=== PATIENT | female | born 1995 ===

== ENCOUNTER 2018-06-03 00:08 | Emergency (ER) | payer MEDICAID ==
[2018-06-03 00:16] VITALS: RESP 16; O2SAT 100
--- NOTE | 2018-06-03 00:43 | C.PDOC ---
History Of Present Illness 22 year old female brought to the ED by mother for an evaluation of decreased appetite, nausea, and vomiting for one week. Unable to obtain complete history because of patient's autistic condition. Time Seen by Provider: 06/03/18 00:41 Chief Complaint (Nursing): GI Problem History Per: Family (Mother ) History/Exam Limitations: no limitations Onset/Duration Of Symptoms: Days (one week) Current Symptoms Are (Timing): Still Present Context: Other Severity: Mild Pain Scale Rating Of: 2 Location Of Pain/Discomfort: Diffuse Radiation Of Pain To:: None Associated Symptoms: Nausea, Vomiting, Loss Of Appetite Exacerbating Factors: Food Alleviating Factors: None Last Bowel Movement: Yesterday Recent travel outside of the [place]: No Additional History Per: Family Past Medical History Reviewed: Historical Data, Nursing Documentation, Vital Signs Vital Signs: Last Vital Signs Temp 99 F 06/03/18 01:00 Pulse 105 H 06/03/18 00:14 Resp 16 06/03/18 00:14 BP 99/69 L 06/03/18 00:14 Pulse Ox 100 06/03/18 02:43 - Medical History Other PMH: Autism Surgical History: No Surg Hx Family History: States: No Known Family Hx - Social History Hx Alcohol Use: No Hx Substance Use: No Review Of Systems Constitutional: Positive for: Fever, Other (Decreased appetite, ROS limited to patient's autistic condition) Gastrointestinal: Positive for: Nausea, Vomiting Physical Exam - Physical Exam Appears: Non-toxic, No Acute Distress Skin: Warm, Dry Head: Normacephalic Eye(s): bilateral: Normal Inspection Oral Mucosa: Dry Neck: Trachea Midline, Supple Chest: Symmetrical Cardiovascular: Rhythm Regular Respiratory: No Rales, No Rhonchi, No Wheezing Gastrointestinal/Abdominal: Soft, No Tenderness, No Distention, No Guarding Back: Normal Inspection Extremity: Normal ROM Extremity: Bilateral: Normal Color And Temperature Neurological/Psych: Other (alert, awake ) Gait: Unable To Assess ED Course And Treatment - Laboratory Results Result Diagrams: 06/03/18 01:21 06/03/18 01:21 O2 Sat by Pulse Oximetry: 100 (RA) Pulse Ox Interpretation: Normal Progress Note: Patient administered Zofran 4mg IVP and IV Fluids. Disposition Counseled Patient/Family Regarding: Studies Performed, Diagnosis, Need For Followup, Rx Given - Disposition Referrals: Eduin Givens [Medical Doctor] - Disposition: HOME/ ROUTINE Disposition Time: 00:43 Condition: FAIR Additional Instructions: Please return if symptoms recur Prescriptions: Ondansetron ODT [Zofran ODT] 1 odt PO BID PRN #10 odt PRN Reason: Nausea/Vomiting Instructions: Nausea and Vomiting, Adult (DC) Forms: [facility] (Gabonese) - Clinical Impression Clinical Impression: Nausea & vomiting - Scribe Statement The provider has reviewed the documentation as recorded by the Scribjaskaran Morocho All medical record entries made by the Elizabethibjaskaran were at my direction and personally dictated by me. I have reviewed the chart and agree that the record accurately reflects my personal performance of the history, physical exam, medical decision making, and the department course for this patient. I have also personally directed, reviewed, and agree with the discharge instructions and disposition.
[2018-06-03] MEDS ORDERED: Sodium Chloride 0.9% 1,000 ML IV ONE ×2 (00:58→02:17)
[2018-06-03] MEDS ORDERED: Sodium Chloride 0.9% 1,000 ML ONE (01:17)
[2018-06-03 01:28] LABS: BASO % 0.4 % (0.0-2.0); EOS # 0.1 K/uL (0.0-0.7); EOS % 1.6 % (0.0-4.0); HEMOGLOBIN 15.3 g/dL (11.0-16.0); LYMPH # 1.8 K/uL (1.0-4.3); MEAN CORPUSCULAR HGB CONC 34.6 g/dL (33.0-37.0); MEAN PLATELET VOLUME 10.9 fL (7.2-11.7); MONO # 0.8 K/uL (0.0-0.8); MONO % 12.4 % (0.0-10.0); NEUT % 58.6 % (50.0-75.0); NRBC % 0.1 % (0.0-2.0); RBC 5.47 Mil/uL (3.80-5.20); RED CELL DISTRIBUTION WIDTH 15.7 % (11.5-14.5); WHITE BLOOD COUNT 6.8 K/uL (4.8-10.8)
[2018-06-03 02:10] LABS: ALB/GLOB RATIO 1.6 (1.0-2.1); ALBUMIN 4.8 g/dL (3.5-5.0); ALT/SGPT 48 U/L (9-52); AST/SGOT 30 U/L (14-36); BLOOD UREA NITROGEN 4 mg/dL (7-17); CALCIUM 9.5 mg/dl (8.6-10.4); GFR AFRICAN-AMERICAN > 60; GFR NON-AFRICAN AMERICAN > 60; LIPASE 105 U/L (23-300)
[2018-06-03 03:27] VITALS: BP 100/60; PULSE 72; TEMP 98.5
== END 2018-06-03 03:22 | disposition home or self-care (01) ==
LOC: C.ER 00:08
DX: R11.2 Nausea with vomiting, unspecified (principal)
CPT/HCPCS: 80053; 83690; 85025; 96361; 96374; 99285; J2405; J7030

== ENCOUNTER 2018-06-04 13:05 | Inpatient (IN) | payer MEDICAID ==
[2018-06-04] MEDS ORDERED: Sodium Chloride 0.9% 1,000 ML IV ONE (13:44)
[2018-06-04 14:21] LABS: BASO % 0.2 % (0.0-2.0); EOS # 0.1 K/uL (0.0-0.7); EOS % 0.9 % (0.0-4.0); HEMOGLOBIN 16.1 g/dL (11.0-16.0); LYMPH # 1.3 K/uL (1.0-4.3); LYMPH % 12.2 % (20.0-40.0); MEAN CELL VOLUME 81.4 fL (81.0-99.0); MEAN CORPUSCULAR HEMOGLOBIN 27.9 pg (27.0-31.0); MEAN CORPUSCULAR HGB CONC 34.2 g/dL (33.0-37.0); MEAN PLATELET VOLUME 10.6 fL (7.2-11.7); MONO # 0.8 K/uL (0.0-0.8); MONO % 7.1 % (0.0-10.0); NEUT # 8.7 K/uL (1.8-7.0); NEUT % 79.6 % (50.0-75.0); RBC 5.79 Mil/uL (3.80-5.20); RED CELL DISTRIBUTION WIDTH 16.3 % (11.5-14.5)
[2018-06-04 14:34] LABS: SQUAMOUS EPITHIAL 7 /hpf (0-5); URINE BACTERIA RARE (<OCC); URINE BILIRUBIN NEGATIVE (NEGATIVE); URINE BLOOD NEGATIVE (NEGATIVE); URINE CLARITY Clear (Clear); URINE COLOR Amber (YELLOW); URINE GLUCOSE (UA) NORMAL (Normal); URINE LEUKOCYTE ESTERASE NEG Leu/uL (Negative); URINE PROTEIN 1+ mg/dL (NEGATIVE)
[2018-06-04 14:57] LABS: BLOOD UREA NITROGEN < 2 mg/dL (7-17); GFR AFRICAN-AMERICAN > 60; GFR NON-AFRICAN AMERICAN > 60
[2018-06-04 14:59] LABS: ALB/GLOB RATIO 1.5 (1.0-2.1); CALCIUM 9.5 mg/dl (8.6-10.4)
[2018-06-04 15:00] LABS: ALT/SGPT 43 U/L (9-52); AST/SGOT 29 U/L (14-36); LIPASE 123 U/L (23-300)
--- NOTE | 2018-06-04 15:03 | CT ---
Date of service: 06/04/2018 PROCEDURE: CT HEAD WITHOUT CONTRAST. HISTORY: seizure COMPARISON: None available. TECHNIQUE: Axial computed tomography images were obtained through the head/brain without intravenous contrast. Radiation dose: Total exam DLP = 868.37 mGy-cm. This CT exam was performed using one or more of the following dose reduction techniques: Automated exposure control, adjustment of the mA and/or kV according to patient size, and/or use of iterative reconstruction technique. FINDINGS: HEMORRHAGE: No intracranial hemorrhage. BRAIN: Normal alex-white matter differentiation and density are appreciated throughout the cerebrum and cerebellum with the brainstem appearing unremarkable as well. There is no mass effect. There is no suspicious extra-axial fluid collection and the midline brain anatomy appears diffusely unremarkable. VENTRICLES: Unremarkable. No hydrocephalus. CALVARIUM: No destructive bony lesion or displaced fracture identified including through the skullbase. PARANASAL SINUSES: Unremarkable as visualized. No significant inflammatory changes. MASTOID AIR CELLS: Unremarkable as visualized. No inflammatory changes. OTHER FINDINGS: None. IMPRESSION: Unremarkable noncontrast head CT.
[2018-06-04] MEDS ORDERED: Iohexol 240 (50 ml) PO ONE (15:09)
--- NOTE | 2018-06-04 15:19 | C.PDOC ---
History Of Present Illness 22 y/o female with history of Autism brought to ED by mother for evaluation of abdominal pain with loss of appetite for the past 2 weeks and new onset seizure today. Mother states today she found patient in bed with incontinence of urine and stool this morning. Mother reports patient was seen at ED 2 days ago for abdominal discomfort, nausea and vomiting,treated with Saline for dehydration and discharged on Zofran. Patient is non verbal, HPI limited and obtained by mother. Time Seen by Provider: 06/04/18 13:30 Chief Complaint (Nursing): Seizure History Per: Family History/Exam Limitations: clinical condition Recent Seizure Activity Began: Days Ago: Number Of Seizures: Multiple Past Medical History Reviewed: Historical Data, Nursing Documentation, Vital Signs Vital Signs: Last Vital Signs Temp 98.5 F 06/04/18 21:01 Pulse 83 06/04/18 22:00 Resp 20 06/04/18 21:01 BP 93/56 L 06/04/18 21:01 Pulse Ox 100 06/04/18 21:01 - Medical History PMH: Seizures Surgical History: No Surg Hx Family History: States: No Known Family Hx - Social History Hx Alcohol Use: No Hx Substance Use: No Review Of Systems Review Of Systems: ROS cannot be obtained secondary to pt's inabilty to answer questions. (patient is non verbal) Physical Exam - Physical Exam Appears: Non-toxic Skin: Warm, Dry, No Rash Head: Atraumatic, Normacephalic Eye(s): bilateral: Normal Inspection Oral Mucosa: Moist Neck: Supple Cardiovascular: Rhythm Regular Respiratory: Normal Breath Sounds, No Rales, No Rhonchi, No Wheezing Gastrointestinal/Abdominal: Bowel Sounds, Soft, No Tenderness, No Guarding, No Rebound Extremity: Normal ROM, Capillary Refill (<2 seconds) Neurological/Psych: Oriented x3, Other (Patient is non verbal) ED Course And Treatment - Laboratory Results Result Diagrams: 06/04/18 14:15 06/04/18 14:15 Lab Interpretation: Abnormal (WBC 11.o, Hgb 16, Hct 47, BUN <2, Cr 0.5, HCO3 14 , Lactate 3.2) O2 Sat by Pulse Oximetry: 100 (RA) Pulse Ox Interpretation: Normal - CT Scan/US CT Head Other Rad Studies (CT/US): Read By Radiologist, Radiology Report Reviewed CT/US Interpretation: Accession No. : [id number]. Patient Name / ID : SHA PENNY / [id number]. Exam Date : 06/04/2018 14:58:54 ( Approved ). Study Comment : Sex / Age : F / 22Y. Creator : Tiffani Lynch. Dictator : Kalia Collier MD. Vegetable Farm Manager : Chief Environmental Commitment Officer : Kalia Collier MD. Approver2 : Report Date : 06/04/2018 14:59:50. My Comment : . Date of service: 06/04/2018. PROCEDURE: CT HEAD WITHOUT CONTRAST. HISTORY: seizure. COMPARISON: None available. TECHNIQUE: Axial computed tomography images were obtained through the head/brain without intravenous contrast. Radiation dose: Total exam DLP = 868.37 mGy-cm. This CT exam was performed using one or more of the following dose reduction techniques: Automated exposure control, adjustment of the mA and/or kV according to patient size, and/ or use of iterative reconstruction technique. FINDINGS: HEMORRHAGE: No intracranial hemorrhage. BRAIN: Normal alex-white matter differentiation and density are appreciated throughout the cerebrum and cerebellum with the brainstem appearing unremarkable as well. There is no mass effect. There is no suspicious extra-axial fluid collection and the midline brain anatomy appears diffusely unremarkable. VENTRICLES: Unremarkable. No hydrocephalus. CALVARIUM: No destructive bony lesion or displaced fracture identified including through the skullbase. PARANASAL SINUSES: Unremarkable as visualized. No significant inflammatory changes. MASTOID AIR CELLS: Unremarkable as visualized. No inflammatory changes. OTHER FINDINGS: None. IMPRESSION: Unremarkable noncontrast head CT. Reevaluation Time: 15:15 - Physician Consult Information Time Consulting Physician Contacted: 15:15 Physician Contacted: Rufina Lerma Outcome Of Conversation: Patient to be admitted for High anion gap acidosis. Abdominal pain with nausea and vomiting Disposition - Disposition Disposition: HOSPITALIZED Disposition Time: 15:20 Condition: FAIR - POA Present On Arrival: None - Clinical Impression Clinical Impression: Seizure, Nausea & vomiting, Abdominal pain, High anion gap metabolic acidosis - Scribe Statement The provider has reviewed the documentation as recorded by the Elizabethibjaskaran Etienne All medical record entries made by the Elizabethibjaskaran were at my direction and personally dictated by me. I have reviewed the chart and agree that the record accurately reflects my personal performance of the history, physical exam, medical decision making, and the department course for this patient. I have also personally directed, reviewed, and agree with the discharge instructions and disposition.
[2018-06-04] MEDS ORDERED: Dextrose 5%/0.9% NS 1,000 ML IV ONE ×2 (15:21→15:38)
[2018-06-04] MEDS ORDERED: Iohexol 240 (50 ml) ONE (15:38)
[2018-06-04 16:24] LABS: BARBITURATES, UR NEGATIVE (NEGATIVE); BENZODIAZEPINES, UR NEGATIVE (NEGATIVE); OPIATES, UR NEGATIVE (NEGATIVE); PHENCYCLIDINE, UR NEGATIVE (NEGATIVE)
--- NOTE | 2018-06-04 16:48 | CP.PCM.PN ---
Subjective - Date & Time of Evaluation Date of Evaluation: 06/04/18 Time of Evaluation: 16:10 - Subjective Subjective: Progress Note for Dr. Lerma's service Patient seen and examined at approximately 16:10 PM in ED Bed 12. Patient is a full code status at this time. Patient's emergency contact is her mother who provided the history due to patient being autistic. 22 year old female with past medical history significant for autism and eczema presents after new onset seizure per mother. Mother states that patient recently came to the ER one day prior after complaints of nausea and vomiting for over a week's duration. Mother states that for the past two week's patient has not been her norm. She has barely been eating or drinking. Mother states that patient seems withdrawn most of the time. Patient then apparently had two witnessed seizures within the past 24 hours. Patient's mother denies any new foods, recent travel, medications or recent exposure to animals or sick contacts. Patient admits to abdominal pain. Mother admits to subjective low grade fever. PMHx- as stated above PSHx- none Fam Hx- Sister with seizures, diagnosed 4 years ago; maternal great grandmother - ovarian cancer; grandmother with thyroid disease Social Hx- denies smoking, drug use or alcohol use Medications - denies Allergies-denies PMD- Dr. Mancini, Vaccination history up to date, last physical in November Objective - Vital Signs/Intake and Output Vital Signs (last 24 hours): Temp Pulse Resp BP Pulse Ox 98.2 F 80 20 104/64 100 06/04/18 13:49 06/04/18 16:18 06/04/18 16:18 06/04/18 16:18 06/04/18 16:18 - Medications Medications: Current Medications Acetaminophen (Tylenol 325mg Tab) 650 mg PO Q6 PRN PRN Reason: Pain, Mild (1-3) Dextrose/Sodium Chloride (Dextrose 5%/0.9% Ns 1000 Ml) 1,000 mls @ 500 mls/hr IV .Q2H ONE Stop: 06/04/18 17:20 Last Admin: 06/04/18 15:40 Dose: 500 mls/hr Potassium Chloride (Potassium Chloride 20 Meq/100 Ml) 20 meq in 100 mls @ 50 mls/hr IVPB ONCE ONE Stop: 06/04/18 18:28 Lorazepam (Ativan) 2 mg IVP Q4 PRN PRN Reason: Seizure activity Ondansetron HCl (Zofran Inj) 4 mg IVP Q6 PRN PRN Reason: Nausea/Vomiting - Labs Labs: 06/04/18 14:15 06/04/18 14:15 - Constitutional Appears: Non-toxic, No Acute Distress, Other - Head Exam Head Exam: ATRAUMATIC, NORMAL INSPECTION - Eye Exam Eye Exam: EOMI - ENT Exam Additional comments: Could not properly assess ears as patient was combative at the time. - Neck Exam Neck Exam: Full ROM - Respiratory Exam Respiratory Exam: NORMAL BREATHING PATTERN - Cardiovascular Exam Cardiovascular Exam: +S1, +S2 - GI/Abdominal Exam GI & Abdominal Exam: Guarding, Soft, Tenderness (RLQ), Normal Bowel Sounds. absent: Rigid - Exam Additional comments: suprapubic tenderness - Extremities Exam Extremities Exam: Full ROM - Back Exam Back Exam: Full ROM. absent: CVA tenderness (L), CVA tenderness (R) - Neurological Exam Neurological Exam: Awake Neuro motor strength exam: Left Upper Extremity: 5, Right Upper Extremity: 5, Left Lower Extremity: 5, Right Lower Extremity: 5 Additional comments: difficult to follow commands due to baseline presentation (autism) - Psychiatric Exam Psychiatric exam: Normal Affect, Normal Mood - Skin Skin Exam: Intact, Normal Color Additional comments: cool hands Assessment and Plan (1) Seizure Assessment & Plan: Head CT- negative for acute disease or bleed. F/U MRI and EEG Consult to Neuro (Dr. Muhammad)- F/U recommendations Lactic acid likely elevated due to seizure. (Slightly hemolysed as well) F/U Blood cultures and UA/UC to rule out infections F/U EKG to rule out cardiac etiology Ativan 2 mg IV PRN on board UDS negative F/U AM labs NPO Aspiration, fall risk and seizure precautions on board Status: Acute (2) Abdominal pain Assessment & Plan: F/U CT abdomen and pelvis F/U ID (Dr. Middleton) recommendations Lipase negative, bHcg negative Zofran PRN Tylenol PRN for pain Status: Acute (3) Hypokalemia Assessment & Plan: Repleted Continue to monitor Status: Acute (4) Prophylactic measure Assessment & Plan: Heparin SC Q 8H No GI prophylaxis indicated at this time Status: Acute - Assessment and Plan (Free Text) Assessment: Discussed with attending. All planning and management as per Dr. Lerma.
[2018-06-04] MEDS ORDERED: Potassium Chloride 20 mEq 100 ML ONE (17:10)
[2018-06-04] MEDS ORDERED: Iodixanol 320 MG/ML 100 ML BOTTLE IV ONE (18:02)
--- NOTE | 2018-06-04 18:39 | CT ---
Date of service: 06/04/2018 PROCEDURE: CT Abdomen and Pelvis with contrast HISTORY: abdominal pain COMPARISON: None. TECHNIQUE: CT scan of the abdomen and pelvis was performed after administration of intravenous contrast. Oral contrast was not administered. Coronal and sagittal reformatted images were obtained. Contrast dose: 100 mL Visipaque 320 Radiation dose: Total exam DLP = 288.42 mGy-cm. This CT exam was performed using one or more of the following dose reduction techniques: Automated exposure control, adjustment of the mA and/or kV according to patient size, and/or use of iterative reconstruction technique. FINDINGS: LOWER THORAX: The visualized lungs are clear. LIVER: Normal in size with homogeneous enhancement. No gross lesion or ductal dilatation. GALLBLADDER AND BILE DUCTS: No calcified gallstones. PANCREAS: Normal in size with homogeneous enhancement. No gross lesion or ductal dilatation. SPLEEN: Normal in size and appearance. ADRENALS: No discrete nodule. KIDNEYS AND URETERS: Normal in size with homogeneous enhancement. No hydronephrosis. No solid mass. VASCULATURE: No aortic aneurysm. BOWEL: There is fluid in the stomach. There are fluid-filled small bowel loops in the right abdomen. There is apparent circumferential mural thickening in the ascending, transverse and proximal descending colon. There is large amount of stool in the mid descending colon, sigmoid colon and rectum. APPENDIX: Normal appendix. PERITONEUM: No free fluid. No free air. LYMPH NODES: No enlarged lymph nodes. BLADDER: Well distended and normal in appearance. REPRODUCTIVE: The uterus is normal in size and deviated to the right. BONES: No acute fracture. Within normal limits for the patient's age. OTHER FINDINGS: None. IMPRESSION: Findings are most compatible with nonspecific acute infectious/inflammatory colitis involving the ascending, transverse and proximal descending colon. Large amount of stool in the distal descending colon, sigmoid colon and rectum.
[2018-06-04] MEDS: Dextrose 5%/0.45% NS 1,000 ML IV SCH (22:01)
[2018-06-05] MEDS: Dextrose 5%/0.45% NS 1,000 ML IV SCH ×2 (06:31→18:02)
[2018-06-05 08:39] LABS: BASO % 0.5 % (0.0-2.0); EOS # 0.4 K/uL (0.0-0.7); EOS % 5.8 % (0.0-4.0); HEMOGLOBIN 12.3 g/dL (11.0-16.0); LYMPH % 33.1 % (20.0-40.0); MEAN CORPUSCULAR HEMOGLOBIN 28.3 pg (27.0-31.0); MEAN CORPUSCULAR HGB CONC 35.9 g/dL (33.0-37.0); MEAN PLATELET VOLUME 10.6 fL (7.2-11.7); MONO # 0.9 K/uL (0.0-0.8); MONO % 14.2 % (0.0-10.0); NEUT # 2.8 K/uL (1.8-7.0); NEUT % 46.4 % (50.0-75.0); RBC 4.36 Mil/uL (3.80-5.20); RED CELL DISTRIBUTION WIDTH 15.8 % (11.5-14.5); WHITE BLOOD COUNT 6.1 K/uL (4.8-10.8)
[2018-06-05 08:42] LABS: MEAN CELL VOLUME 78.7 fL (81.0-99.0)
[2018-06-05 08:56] LABS: ALB/GLOB RATIO 1.5 (1.0-2.1); ALBUMIN 3.3 g/dL (3.5-5.0); ALT/SGPT 35 U/L (9-52); AST/SGOT 20 U/L (14-36); BLOOD UREA NITROGEN < 2 mg/dL (7-17); CALCIUM 7.7 mg/dl (8.6-10.4); GFR AFRICAN-AMERICAN > 60; GFR NON-AFRICAN AMERICAN > 60
--- NOTE | 2018-06-05 11:17 | CP.PCM.PN ---
Subjective - Date & Time of Evaluation Date of Evaluation: 06/05/18 Time of Evaluation: 11:17 - Subjective Subjective: PGY-[address] Lerma's Service Patient seen and examined at bedside. Per nursing, no acute events occurred overnight. Patient's mother reports one episode of non-billious, non-bloody emesis this morning. Remainder of ROS unobtainable due to patient's current clinical condition. Objective - Vital Signs/Intake and Output Vital Signs (last 24 hours): Temp Pulse Resp BP Pulse Ox 98.0 F 74 20 95/58 L 100 06/05/18 07:00 06/05/18 07:50 06/05/18 07:00 06/05/18 07:00 06/05/18 07:00 - Medications Medications: Current Medications Acetaminophen (Tylenol 325mg Tab) 650 mg PO Q6 PRN PRN Reason: Pain, Mild (1-3) Dextrose/Sodium Chloride (Dextrose 5%/0.45% Ns 1000 Ml) 1,000 mls @ 100 mls/hr IV .Q10H [place] Last Admin: 06/05/18 06:31 Dose: 100 mls/hr Lorazepam (Ativan) 2 mg IVP Q4 PRN PRN Reason: Seizure activity Ondansetron HCl (Zofran Inj) 4 mg IVP Q6 PRN PRN Reason: Nausea/Vomiting Last Admin: 06/04/18 17:24 Dose: 4 mg - Labs Labs: 06/05/18 08:28 06/05/18 08:28 - Head Exam Head Exam: NORMAL INSPECTION, NORMOCEPHALIC - Eye Exam Eye Exam: EOMI, Normal appearance, PERRL Pupil Exam: NORMAL ACCOMODATION - ENT Exam ENT Exam: Mucous Membranes Moist, Normal Oropharynx - Respiratory Exam Respiratory Exam: Clear to Ausculation Bilateral, NORMAL BREATHING PATTERN - Cardiovascular Exam Cardiovascular Exam: REGULAR RHYTHM, +S1, +S2 - GI/Abdominal Exam GI & Abdominal Exam: Soft, Normal Bowel Sounds - Extremities Exam Extremities Exam: Normal Inspection. absent: Joint Swelling, Pedal Edema - Neurological Exam Neurological Exam: Alert, Awake, CN II-XII Intact - Psychiatric Exam Psychiatric exam: Normal Affect, Normal Mood - Skin Skin Exam: Dry Assessment and Plan - Assessment and Plan (Free Text) Plan: Seizure Assessment & Plan: Head CT- negative for acute disease or bleed. MRI taken. Will f/u for read. EEG not taken yet. Will f/u with read. Consult to Neuro (Dr. Muhammad)- F/U recommendations Lactic acid likely elevated due to seizure. (Slightly hemolysed as well) F/U Blood cultures and UA contaminated. Will f/u with repeat. F/U EKG to rule out cardiac etiology Ativan 2 mg IV PRN on board UDS negative F/U AM labs NPO Aspiration, fall risk and seizure precautions on board Status: Acute Abdominal pain Assessment & Plan: CT abdomen and pelvis :nonspecific acute infectious/inflammatory colitis in ascedning, transverse and proximal colon :For complete read see EMR F/U ID (Dr. Middleton) recommendations GI Dr. Walker consulted. Help appreciated Lipase negative, bHcg negative Zofran PRN Tylenol PRN for pain Status: Acute Hypokalemia Assessment & Plan: Repleted Continue to monitor Status: Acute Hypomagnesmia -Repleted -Will continue to monitor with serial CMP'S (4) Prophylactic measure Assessment & Plan: Heparin SC Q 12H No GI prophylaxis indicated at this time Status: Acute - Assessment and Plan (Free Text) Assessment: Discussed with attending. All planning and management as per Dr. Lerma.
[2018-06-05] MEDS ORDERED: Magnesium Sulfate 1 gm in D5W 1 GM/100 ML BAG IVPB ONE ×2 (11:27→16:57)
--- NOTE | 2018-06-05 15:17 | MRI ---
Date of service: 06/05/2018 PROCEDURE: MRI BRAIN WITHOUT CONTRAST HISTORY: seizure- new onset COMPARISON: Noncontrast head CT from 06/04/2018. TECHNIQUE: Multiplanar, multisequence MR images of the brain were obtained without intravenous contrast enhancement. FINDINGS: HEMORRHAGE: None DWI: No evidence of an acute or early subacute infarction. BRAIN PARENCHYMA: Barnes-white matter differentiation is preserved. There is no mass, mass effect or abnormal extra-axial fluid collection. There is no territorial infarction. The midline sagittal structures are normal. The hippocampi by are symmetric and have normal signal intensity. No evidence for mesial temporal sclerosis VENTRICLES: The ventricles are normal in size, shape and configuration. CRANIUM: There is normal bone marrow signal pattern. ORBITS: Grossly unremarkable. PARANASAL SINUSES/MASTOIDS: Predominantly clear. VASCULAR SYSTEM: There are normal signal voids in the larger intracranial arteries. OTHER FINDINGS: None. IMPRESSION: No acute intracranial abnormality. No evidence for mesial temporal sclerosis.
--- NOTE | 2018-06-05 17:05 | CP.PCM.CON ---
History of Present Illness - History of Present Illness History of Present Illness: PGY-4 GI Fellow Initial Consult Note The following mostly obtained from chart review and mother due to patient unable to provide history due to autism. Pt is a 22 yo F with autism presenting initially for seizure eval. Mother reported patient was seen at ED recently for abdominal discomfort, nausea and vomiting,treated with IV Fluids and discharged on ondansetron. GI consulted for persistent symptoms. Mother states that patient has had intermittent N/V for almost the last few weeks. Emesis consists of PO intake, denying any bloody or bilious emesis. State patient had last BM yesterday AM and was formed brown though she thinks that patient may be going less than usual. She denied any sick contacts, recent travel, abx use or change in diet. Unable to obtain ROS due to clinical condition, pt not verbal MHx: Autism SurgHx: None Meds: reviewed in MAR FamHx:Denied GI problems SocHx: No EtOH, Ill, Tob All: NKDA Past Patient History - Past Medical History & Family History Past Medical History?: No - Past Social History Smoking Status: Never Smoked - NEUROLOGICAL Hx Seizures: Yes - MUSCULOSKELETAL/RHEUMATOLOGICAL Hx Falls: Yes - PSYCHIATRIC Hx Substance Use: No - SURGICAL HISTORY Hx Surgeries: No - ANESTHESIA Hx Anesthesia: No Meds Allergies/Adverse Reactions: Allergies Allergy/AdvReac Type Severity Reaction Status Date / Time No Known Allergies Allergy Verified 06/03/18 00:16 - Medications Medications: Current Medications Acetaminophen (Tylenol 325mg Tab) 650 mg PO Q6 PRN PRN Reason: Pain, Mild (1-3) Heparin Sodium (Porcine) (Heparin) 5,000 units SC Q12 [facility] Dextrose/Sodium Chloride (Dextrose 5%/0.45% Ns 1000 Ml) 1,000 mls @ 100 mls/hr IV .Q10H [facility] Last Admin: 06/05/18 06:31 Dose: 100 mls/hr Magnesium Sulfate/Dextrose (Magnesium Sulfate 1 Gm/100 Ml D5w) 1 gm in 100 mls @ 200 mls/hr IVPB ONCE ONE Stop: 06/05/18 17:26 Potassium Chloride (Potassium Chloride 20 Meq/100 Ml) 20 meq in 100 mls @ 50 mls/hr IVPB ONCE ONE Stop: 06/05/18 18:56 Potassium Chloride (Potassium Chloride 20 Meq/100 Ml) 20 meq in 100 mls @ 50 mls/hr IVPB ONCE ONE Stop: 06/05/18 20:59 Lorazepam (Ativan) 2 mg IVP Q4 PRN PRN Reason: Seizure activity Ondansetron HCl (Zofran Inj) 4 mg IVP Q6 PRN PRN Reason: Nausea/Vomiting Last Admin: 06/04/18 17:24 Dose: 4 mg Physical Exam - Constitutional Appears: No Acute Distress, Cachectic, Chronically Ill - Head Exam Head Exam: ATRAUMATIC, NORMAL INSPECTION - Eye Exam Eye Exam: EOMI. absent: Scleral icterus - ENT Exam ENT Exam: Mucous Membranes Dry - Respiratory Exam Respiratory Exam: Clear to Auscultation Bilateral, NORMAL BREATHING PATTERN - GI/Abdominal Exam GI & Abdominal Exam: Distended (mildly), Hypoactive Bowel Sounds, Soft. absent : Bruit, Firm, Guarding, Normal Bowel Sounds, Rigid, Tenderness - Rectal Exam Rectal Exam: Deferred - Extremities Exam Extremities exam: Positive for: normal inspection. Negative for: pedal edema - Neurological Exam Neurological exam: Alert Additional comments: non-verbal, intermittently tracks, mouth agape - Skin Skin Exam: Intact, Warm Results - Vital Signs Recent Vital Signs: Last Vital Signs Temp 98.1 F 06/05/18 15:30 Pulse 88 06/05/18 15:30 Resp 20 06/05/18 15:30 BP 112/75 06/05/18 15:30 Pulse Ox 99 06/05/18 15:30 - Labs Result Diagrams: 06/05/18 08:28 06/05/18 08:28 Labs: Laboratory Results - last 24 hr 06/05/18 06/05/18 06/05/18 08:28 08:28 12:53 WBC 6.1 RBC 4.36 Hgb 12.3 D Hct 34.3 MCV 78.7 L D MCH 28.3 MCHC 35.9 RDW 15.8 H Plt Count 176 MPV 10.6 Neut % (Auto) 46.4 L Lymph % (Auto) 33.1 [place] % (Auto) 14.2 H Eos % (Auto) 5.8 H Baso % (Auto) 0.5 Neut # (Auto) 2.8 Lymph # (Auto) 2.0 [place] # (Auto) 0.9 H Eos # (Auto) 0.4 Baso # (Auto) 0.0 Sodium 138 Potassium 2.6 L Chloride 103 Carbon Dioxide 23 Anion Gap 14 BUN < 2 L Creatinine 0.5 L Est GFR ( Amer) > 60 Est GFR (Non-Af Amer) > 60 Random Glucose 126 H Hemoglobin A1c 5.2 Calcium 7.7 L Phosphorus 1.6 L Magnesium 1.3 L Total Bilirubin 0.7 AST 20 ALT 35 Alkaline Phosphatase 38 D Total Protein 5.4 L Albumin 3.3 L D Globulin 2.1 L Albumin/Globulin Ratio 1.5 Assessment & Plan - Assessment and Plan (Free Text) Assessment: 22 yo F with autism presenting with N/V found to have colitis on CT. # N/V, Colitis: Likely related to viral illness. Pt will large stool burden on CT in addition to colitis. Perhaps symtoms related to constipation as well. Does not seem like C diff given reports formed stools recently and w/o sig risk factors. Plan: - Supportive care - Check stool culture, hold off C diff for now - Order dulcolax suppository - If persistent symptoms, may consider EGD Pt seen and examined with Dr. Walker
--- NOTE | 2018-06-05 19:41 | CP.PCM.CON ---
History of Present Illness - History of Present Illness History of Present Illness: 22 y/o female with history of Autism brought to ED by mother for evaluation of abdominal pain with loss of appetite for the past 2 weeks and new onset seizure today. Mother states today she found patient in bed with incontinence of urine and stool this morning. Mother reports patient was seen at ED 2 days ago for abdominal discomfort, nausea and vomiting,treated with Saline for dehydration and discharged on Zofran. Patient is non verbal, HPI limited and obtained by mother. Review of Systems - Review of Systems Systems not reviewed;Unavailable: Altered Mental Status All systems: reviewed and no additional remarkable complaints except Past Patient History - Past Medical History & Family History Past Medical History?: No - Past Social History Smoking Status: Never Smoked - NEUROLOGICAL Hx Seizures: Yes - MUSCULOSKELETAL/RHEUMATOLOGICAL Hx Falls: Yes - PSYCHIATRIC Hx Substance Use: No - SURGICAL HISTORY Hx Surgeries: No - ANESTHESIA Hx Anesthesia: No Meds Allergies/Adverse Reactions: Allergies Allergy/AdvReac Type Severity Reaction Status Date / Time No Known Allergies Allergy Verified 06/03/18 00:16 - Medications Medications: Current Medications Acetaminophen (Tylenol 325mg Tab) 650 mg PO Q6 PRN PRN Reason: Pain, Mild (1-3) Heparin Sodium (Porcine) (Heparin) 5,000 units SC Q12 [facility] Dextrose/Sodium Chloride (Dextrose 5%/0.45% Ns 1000 Ml) 1,000 mls @ 100 mls/hr IV .Q10H [facility] Last Admin: 06/05/18 18:02 Dose: Not Given Potassium Chloride (Potassium Chloride 20 Meq/100 Ml) 20 meq in 100 mls @ 50 mls/hr IVPB ONCE ONE Stop: 06/05/18 20:59 Last Admin: 06/05/18 19:06 Dose: 50 mls/hr Levetiracetam (Keppra) 250 mg PO BID [facility] Last Admin: 06/05/18 18:58 Dose: 250 mg Lorazepam (Ativan) 2 mg IVP Q4 PRN PRN Reason: Seizure activity Ondansetron HCl (Zofran Inj) 4 mg IVP Q6 PRN PRN Reason: Nausea/Vomiting Last Admin: 06/04/18 17:24 Dose: 4 mg Physical Exam - Constitutional Appears: No Acute Distress, Chronically Ill - Head Exam Head Exam: ATRAUMATIC, NORMOCEPHALIC - Eye Exam Eye Exam: PERRL - ENT Exam ENT Exam: Mucous Membranes Dry - Neck Exam Neck exam: Negative for: Lymphadenopathy - Respiratory Exam Respiratory Exam: Decreased Breath Sounds, Clear to Auscultation Bilateral - Cardiovascular Exam Cardiovascular Exam: REGULAR RHYTHM, +S1, +S2 - GI/Abdominal Exam GI & Abdominal Exam: Diminished Bowel Sounds, Soft. absent: Tenderness - Rectal Exam Rectal Exam: Deferred - Exam Exam: NORMAL INSPECTION - Extremities Exam Extremities exam: Positive for: pedal pulses present. Negative for: calf tenderness, pedal edema, tenderness - Back Exam Back exam: absent: CVA tenderness (L), CVA tenderness (R) - Neurological Exam Neurological exam: Alert, CN II-XII Intact, Oriented x3, Reflexes Normal - Psychiatric Exam Psychiatric exam: Normal Mood - Skin Skin Exam: Dry Results - Vital Signs Recent Vital Signs: Last Vital Signs Temp 98.1 F 06/05/18 15:30 Pulse 88 06/05/18 15:30 Resp 20 06/05/18 15:30 BP 112/75 06/05/18 15:30 Pulse Ox 99 06/05/18 15:30 - Labs Result Diagrams: 06/05/18 08:28 06/05/18 08:28 Labs: Laboratory Results - last 24 hr 06/05/18 06/05/18 06/05/18 08:28 08:28 12:53 WBC 6.1 RBC 4.36 Hgb 12.3 D Hct 34.3 MCV 78.7 L D MCH 28.3 MCHC 35.9 RDW 15.8 H Plt Count 176 MPV 10.6 Neut % (Auto) 46.4 L Lymph % (Auto) 33.1 [place] % (Auto) 14.2 H Eos % (Auto) 5.8 H Baso % (Auto) 0.5 Neut # (Auto) 2.8 Lymph # (Auto) 2.0 [place] # (Auto) 0.9 H Eos # (Auto) 0.4 Baso # (Auto) 0.0 Sodium 138 Potassium 2.6 L Chloride 103 Carbon Dioxide 23 Anion Gap 14 BUN < 2 L Creatinine 0.5 L Est GFR ( Amer) > 60 Est GFR (Non-Af Amer) > 60 Random Glucose 126 H Hemoglobin A1c 5.2 Calcium 7.7 L Phosphorus 1.6 L Magnesium 1.3 L Total Bilirubin 0.7 AST 20 ALT 35 Alkaline Phosphatase 38 D Total Protein 5.4 L Albumin 3.3 L D Globulin 2.1 L Albumin/Globulin Ratio 1.5 Assessment & Plan (1) Seizure Status: Acute - Assessment and Plan (Free Text) Assessment: seizures etiology unclear recc neuro eval consider LP await cultures Plan: 22 yo F with autism presenting with N/V found to have colitis on CT. r/o viral etiology Has no diarrhea at present recc : GI eval , stool enterovirus, OB, C/S
--- NOTE | 2018-06-06 03:24 | CON ---
Copied To: Martin Muhammad MD Attending MD: Martin Muhammad MD DATE: 06/05/2018 NEUROLOGY CONSULTATION REASON FOR CONSULTATION: Seizure. HISTORY OF PRESENTING ILLNESS: The patient is a 22-year-old female who was brought to the hospital by mother with abdominal pain and seizure. Apparently, the patient had a seizure yesterday. Her mother found her in stool and urine in the bed. had an episode during which she started shaking and then she passed out. The patient because of her history of autism and special needs. REVIEW OF SYSTEMS: There is no chest pain. No shortness of breath. Positive for abdominal pain. PAST MEDICAL HISTORY: Includes autism. MEDICATIONS AT HOME: None. ALLERGIES: NO KNOWN DRUG ALLERGIES. SOCIAL HISTORY: The patient is a nonsmoker and nonalcoholic. Does not use any illicit drugs. FAMILY HISTORY: The patient's sister has seizures. PHYSICAL EXAMINATION: GENERAL: The patient is a young female, lying in the bed, in no acute distress. VITAL SIGNS: Her blood pressure is 112/75, heart rate is 88 per minute, breathing at a rate of 16 per minute, temperature 98.1 degrees Fahrenheit. HEENT EXAM: Head is normocephalic and atraumatic. NECK: Supple. There are no carotid bruits. No JVD. LUNGS: Clear. HEART: S1 and S2 are audible. No murmurs. ABDOMEN: Soft and nontender. Bowel sounds are present. NEUROLOGIC EXAMINATION: Mental Status: The patient is awake and alert. She follows some simple commands. She is not verbalizing. Cranial nerve Examination: Pupils are 3 mm bilaterally reactive to light. Visual nunez are full. Extraocular movements are intact. There is no facial asymmetry. Palate is upgoing bilaterally. Tongue is midline. Motor Examination: Tone is normal. She is moving all four extremities symmetrically. Power appears to be 4 to 5/5. Plantars are downgoing bilaterally. Cerebellar Examination: [id number] shows no dysmetria. Gait is deferred at the moment. LABORATORY DATA: Labs reviewed, shows a WBC of 6.1, hemoglobin 12.3, hematocrit 34.3, and platelets of 176. Sodium 138, potassium 2.6, chloride 103, carbon dioxide 23, BUN of less than 2, creatinine 0.5, and glucose of 78. The patient's urine toxicology screen is negative. The patient had an MRI of the brain done, which shows no acute intracranial abnormality. No evidence of mesial temporal sclerosis. IMPRESSION: 1. New-onset seizure. 2. History of autism. RECOMMENDATIONS: 1. The patient to be started on Keppra 250 mg twice a day. 2. The patient to have seizure precautions. 3. The patient to have an electroencephalogram. 4. Please continue supportive care and other treatment. Thank you for the opportunity to participate in the care of this patient. Martin Muhammad MD
[2018-06-06] MEDS: Dextrose 5%/0.45% NS 1,000 ML IV SCH ×3 (04:25→14:20)
--- NOTE | 2018-06-06 07:05 | CP.PCM.PN ---
Subjective - Date & Time of Evaluation Date of Evaluation: 06/06/18 Time of Evaluation: 07:05 - Subjective Subjective: PGY-[address] Lerma's Service Patient seen and examined at bedside. Per nursing, no acute events occurred overnight. Patient's mother reports one episode of non-billious, non-bloody emesis this morning. Remainder of ROS unobtainable due to patient's current clinical condition. Objective - Vital Signs/Intake and Output Vital Signs (last 24 hours): Temp Pulse Resp BP Pulse Ox 98 F 98 H 20 100/65 99 06/05/18 23:42 06/05/18 23:42 06/05/18 23:42 06/05/18 23:42 06/05/18 23:42 Intake and Output: 06/06/18 06/06/18 06:59 18:59 Intake Total 500 Balance 500 - Medications Medications: Current Medications Acetaminophen (Tylenol 325mg Tab) 650 mg PO Q6 PRN PRN Reason: Pain, Mild (1-3) Heparin Sodium (Porcine) (Heparin) 5,000 units SC Q12 [facility] Last Admin: 06/05/18 22:25 Dose: 5,000 units Dextrose/Sodium Chloride (Dextrose 5%/0.45% Ns 1000 Ml) 1,000 mls @ 100 mls/hr IV .Q10H [facility] Last Admin: 06/06/18 04:25 Dose: Not Given Levetiracetam (Keppra) 250 mg PO BID [facility] Last Admin: 06/05/18 18:58 Dose: 250 mg Lorazepam (Ativan) 2 mg IVP Q4 PRN PRN Reason: Seizure activity Ondansetron HCl (Zofran Inj) 4 mg IVP Q6 PRN PRN Reason: Nausea/Vomiting Last Admin: 06/06/18 06:37 Dose: 4 mg - Labs Labs: 06/05/18 08:28 06/05/18 08:28 - Head Exam Head Exam: ATRAUMATIC, NORMAL INSPECTION, NORMOCEPHALIC - Eye Exam Eye Exam: EOMI, Normal appearance, PERRL Pupil Exam: NORMAL ACCOMODATION - ENT Exam ENT Exam: Mucous Membranes Moist, Normal Oropharynx - Respiratory Exam Respiratory Exam: Clear to Ausculation Bilateral, NORMAL BREATHING PATTERN. absent: Prolonged Expiratory Phase, Respiratory Distress - Cardiovascular Exam Cardiovascular Exam: REGULAR RHYTHM, +S1, +S2 - GI/Abdominal Exam GI & Abdominal Exam: Soft, Normal Bowel Sounds. absent: Hyperactive Bowel Sounds - Extremities Exam Extremities Exam: Normal Inspection - Back Exam Back Exam: NORMAL INSPECTION. absent: CVA tenderness (R), paraspinal tenderness - Neurological Exam Neurological Exam: Alert, Awake, CN II-XII Intact - Psychiatric Exam Psychiatric exam: Normal Affect, Normal Mood - Skin Skin Exam: Dry, Intact Assessment and Plan - Assessment and Plan (Free Text) Plan: Plan: Seizure Assessment & Plan: Head CT- negative for acute disease or bleed. MRI taken- negative EEG not taken yet. Will f/u with read. Consult to Neuro (Dr. Muhammad) : Patient started on Keppra 250mg BID : Patient to have seizure precautions : EEG : Continue supportive care and other treatment. Lactic acid likely elevated due to seizure. (Slightly hemolysed as well) Blood cultures: negative x24 hours Urine culture: negative UA contaminated. Will f/u with repeat. Ativan 2 mg IV PRN on board UDS negative Liquid diet Aspiration, fall risk and seizure precautions on board Status: Acute Abdominal pain Assessment & Plan: CT abdomen and pelvis :nonspecific acute infectious/inflammatory colitis in ascedning, transverse and proximal colon :For complete read see EMR ID (Dr. Middleton) recommendations :recc : GI eval , stool enterovirus, OB, C/S GI Dr. Walker consulted. Help appreciated : Supportive care : Check stool culture, hold off C diff for now : Order dulcolax suppository : If persistent symptoms, may consider EGD Lipase negative, bHcg negative Zofran PRN Tylenol PRN for pain Status: Acute Hypokalemia Assessment & Plan: Repleted Continue to monitor with serial CMP's Status: Acute Hypomagnesmia -Repleted -Will continue to monitor with serial CMP'S (4) Prophylactic measure Assessment & Plan: Heparin SC Q 12H No GI prophylaxis indicated at this time Status: Acute - Assessment and Plan (Free Text) Assessment: Discussed with attending. All planning and management as per Dr. Lerma.
[2018-06-06 12:10] LABS: BASO % 0.3 % (0.0-2.0); EOS # 0.3 K/uL (0.0-0.7); EOS % 3.7 % (0.0-4.0); HEMOGLOBIN 12.7 g/dL (11.0-16.0); LYMPH # 1.7 K/uL (1.0-4.3); LYMPH % 18.5 % (20.0-40.0); MEAN CELL VOLUME 78.7 fL (81.0-99.0); MEAN CORPUSCULAR HEMOGLOBIN 28.3 pg (27.0-31.0); MEAN PLATELET VOLUME 10.2 fL (7.2-11.7); MONO # 0.9 K/uL (0.0-0.8); MONO % 10.3 % (0.0-10.0); NEUT # 6.2 K/uL (1.8-7.0); NEUT % 67.2 % (50.0-75.0); RBC 4.49 Mil/uL (3.80-5.20); RED CELL DISTRIBUTION WIDTH 16.1 % (11.5-14.5); WHITE BLOOD COUNT 9.2 K/uL (4.8-10.8)
[2018-06-06] MEDS: POLYETHYLENE GLYCOL 3350 17 GM/Dose PACKET PO SCH (12:20)
[2018-06-06 12:22] LABS: ALB/GLOB RATIO 1.4 (1.0-2.1); ALBUMIN 3.2 g/dL (3.5-5.0); ALT/SGPT 28 U/L (9-52); AST/SGOT 22 U/L (14-36); CALCIUM 8.1 mg/dl (8.6-10.4); GFR AFRICAN-AMERICAN > 60; GFR NON-AFRICAN AMERICAN > 60
[2018-06-06 12:23] LABS: BLOOD UREA NITROGEN < 2 mg/dL (7-17)
--- NOTE | 2018-06-06 13:55 | CP.PCM.PN ---
Subjective - Date & Time of Evaluation Date of Evaluation: 06/06/18 Time of Evaluation: 12:30 - Subjective Subjective: PGY-4 GI Fellow Prog Note Mother reports that pt had one episode of orange emesis. States no BM yet after suppository. Unable to obtain ROS due to clinical condition Objective - Vital Signs/Intake and Output Vital Signs (last 24 hours): Temp Pulse Resp BP Pulse Ox 98.7 F 95 H 18 93/57 L 99 06/06/18 08:00 06/06/18 08:00 06/06/18 08:00 06/06/18 08:00 06/06/18 08:00 Intake and Output: 06/06/18 06/06/18 06:59 18:59 Intake Total 500 Balance 500 - Medications Medications: Current Medications Acetaminophen (Tylenol 325mg Tab) 650 mg PO Q6 PRN PRN Reason: Pain, Mild (1-3) Heparin Sodium (Porcine) (Heparin) 5,000 units SC Q12 [facility] Last Admin: 06/06/18 09:29 Dose: Not Given Dextrose/Sodium Chloride (Dextrose 5%/0.45% Ns 1000 Ml) 1,000 mls @ 100 mls/hr IV .Q10H [facility] Last Admin: 06/06/18 09:29 Dose: 100 mls/hr Potassium Chloride (Potassium Chloride 20 Meq/100 Ml) 20 meq in 100 mls @ 50 mls/hr IVPB ONCE ONE Stop: 06/06/18 15:31 Potassium Chloride (Potassium Chloride 20 Meq/100 Ml) 20 meq in 100 mls @ 50 mls/hr IVPB ONCE ONE Stop: 06/06/18 17:59 Potassium Chloride (Potassium Chloride 20 Meq/100 Ml) 20 meq in 100 mls @ 50 mls/hr IVPB ONCE ONE Stop: 06/06/18 19:59 Potassium Chloride (Potassium Chloride 20 Meq/100 Ml) 20 meq in 100 mls @ 50 mls/hr IVPB ONCE ONE Stop: 06/06/18 21:59 Levetiracetam (Keppra) 250 mg PO BID [facility] Last Admin: 06/06/18 10:00 Dose: Not Given Lorazepam (Ativan) 2 mg IVP Q4 PRN PRN Reason: Seizure activity Lorazepam (Ativan) 1 mg IVP ONCE PRN PRN Reason: Agitation Last Admin: 06/06/18 10:08 Dose: 1 mg Magnesium Citrate (Citrate Of Mag) 300 ml PO ONCE ONE Stop: 06/06/18 15:01 Ondansetron HCl (Zofran Inj) 4 mg IVP Q6 PRN PRN Reason: Nausea/Vomiting Last Admin: 06/06/18 06:37 Dose: 4 mg Polyethylene Glycol (Miralax) 17 gm PO DAILY [facility] - Labs Labs: 06/06/18 12:03 06/06/18 12:03 - Constitutional Appears: Cachectic, Chronically Ill - Respiratory Exam Respiratory Exam: NORMAL BREATHING PATTERN. absent: Accessory Muscle Use - Cardiovascular Exam Cardiovascular Exam: REGULAR RHYTHM, RRR - GI/Abdominal Exam GI & Abdominal Exam: Soft, Normal Bowel Sounds. absent: Firm, Guarding, Rigid, Tenderness Assessment and Plan - Assessment and Plan (Free Text) Assessment: 22 yo F with autism presenting with N/V found to have colitis on CT. # N/V, Colitis: Likely related to viral illness. Pt with large stool burden on CT in addition to colitis. Perhaps symptoms related to constipation as well. Does not seem like C diff given reports formed stools recently and w/o sig risk factors. Plan: - Supportive care - Increase bowel regimen today, want to reassess symptoms after good bowel movement - If symptoms persist after moving bowels well, may consider EGD Pt seen and examined with Dr. Walker
[2018-06-06] MEDS ORDERED: Magnesium Citrate Oral SOL (300 ml) PO ONE (15:00)
--- NOTE | 2018-06-06 18:15 | CP.PCM.PN ---
Subjective - Date & Time of Evaluation Date of Evaluation: 06/06/18 Time of Evaluation: 08:00 - Subjective Subjective: still no BM Dr Walker on board no seizures no fever Objective - Vital Signs/Intake and Output Vital Signs (last 24 hours): Temp Pulse Resp BP Pulse Ox 97.9 F 92 H 20 102/69 100 06/06/18 16:02 06/06/18 16:47 06/06/18 16:02 06/06/18 16:02 06/06/18 16:02 Intake and Output: 06/06/18 06/06/18 06:59 18:59 Intake Total 500 800 Balance 500 800 - Medications Medications: Current Medications Acetaminophen (Tylenol 325mg Tab) 650 mg PO Q6 PRN PRN Reason: Pain, Mild (1-3) Heparin Sodium (Porcine) (Heparin) 5,000 units SC Q12 [facility] Last Admin: 06/06/18 09:29 Dose: Not Given Dextrose/Sodium Chloride (Dextrose 5%/0.45% Ns 1000 Ml) 1,000 mls @ 100 mls/hr IV .Q10H [facility] Last Admin: 06/06/18 14:20 Dose: Not Given Potassium Chloride (Potassium Chloride 20 Meq/100 Ml) 20 meq in 100 mls @ 50 mls/hr IVPB ONCE ONE Stop: 06/06/18 19:59 Potassium Chloride (Potassium Chloride 20 Meq/100 Ml) 20 meq in 100 mls @ 50 mls/hr IVPB ONCE ONE Stop: 06/06/18 21:59 Levetiracetam (Keppra) 250 mg PO BID [facility] Last Admin: 06/06/18 10:00 Dose: Not Given Lorazepam (Ativan) 2 mg IVP Q4 PRN PRN Reason: Seizure activity Lorazepam (Ativan) 1 mg IVP ONCE PRN PRN Reason: Agitation Last Admin: 06/06/18 10:08 Dose: 1 mg Ondansetron HCl (Zofran Inj) 4 mg IVP Q6 PRN PRN Reason: Nausea/Vomiting Last Admin: 06/06/18 06:37 Dose: 4 mg Polyethylene Glycol (Miralax) 17 gm PO DAILY [facility] Last Admin: 06/06/18 12:20 Dose: 17 gm - Labs Labs: 06/06/18 12:03 06/06/18 12:03 - Constitutional Appears: Non-toxic, Chronically Ill - Head Exam Head Exam: NORMOCEPHALIC - Eye Exam Eye Exam: PERRL - ENT Exam ENT Exam: Mucous Membranes Dry - Neck Exam Neck Exam: absent: Lymphadenopathy - Respiratory Exam Respiratory Exam: Decreased Breath Sounds - Cardiovascular Exam Cardiovascular Exam: REGULAR RHYTHM - GI/Abdominal Exam GI & Abdominal Exam: Distended, Soft - Rectal Exam Rectal Exam: Deferred Assessment and Plan (1) Seizure Status: Acute - Assessment and Plan (Free Text) Assessment: cont rx as ordered
[2018-06-06] MEDS ORDERED: Acetaminophen 650mg/20.3ml solution UD PO ONE (19:47)
[2018-06-07] MEDS: Dextrose 5%/0.45% NS 1,000 ML IV SCH ×3 (10:02→19:30)
[2018-06-07] MEDS: POLYETHYLENE GLYCOL 3350 17 GM/Dose PACKET PO SCH (10:05)
[2018-06-07 11:41] LABS: BASO % 0.3 % (0.0-2.0); EOS # 0.5 K/uL (0.0-0.7); EOS % 5.5 % (0.0-4.0); HEMOGLOBIN 12.7 g/dL (11.0-16.0); LYMPH # 2.2 K/uL (1.0-4.3); LYMPH % 26.5 % (20.0-40.0); MEAN CELL VOLUME 79.3 fL (81.0-99.0); MEAN CORPUSCULAR HEMOGLOBIN 28.1 pg (27.0-31.0); MEAN CORPUSCULAR HGB CONC 35.4 g/dL (33.0-37.0); MEAN PLATELET VOLUME 11.2 fL (7.2-11.7); MONO # 0.7 K/uL (0.0-0.8); MONO % 7.9 % (0.0-10.0); NEUT % 59.8 % (50.0-75.0); NRBC % 0.1 % (0.0-2.0); RBC 4.51 Mil/uL (3.80-5.20); RED CELL DISTRIBUTION WIDTH 15.9 % (11.5-14.5); WHITE BLOOD COUNT 8.4 K/uL (4.8-10.8)
[2018-06-07 11:59] LABS: BLOOD UREA NITROGEN < 2 mg/dL (7-17); GFR AFRICAN-AMERICAN > 60; GFR NON-AFRICAN AMERICAN > 60
[2018-06-07] MEDS ORDERED: Potassium Chloride 20 mEq ER Tab PO SCH (17:30)
[2018-06-07] MEDS: Potassium Chloride 20 mEq/15 ml LIQ UD PO SCH (18:22)
[2018-06-08] MEDS: POLYETHYLENE GLYCOL 3350 17 GM/Dose PACKET PO SCH (09:12)
[2018-06-08] MEDS: Potassium Chloride 20 mEq/15 ml LIQ UD PO SCH (09:12)
--- NOTE | 2018-06-08 13:37 | PN ---
Copied To: Olga Bartlett MD Attending MD: Olga Bartlett MD DATE: 06/08/2018 LOCATION: 568, bed A. SUBJECTIVE: This is a 22-year-old female, mentally challenging, seen and examined in the presence of her family member, mother, nonverbal, appeared to be somewhat awake, alert, reported to have bowel movement without any reported bleeding or nausea or vomiting as per the mother's statement, somewhat tolerating oral intake. The entire chart is reviewed including but not limited to the most recent lab and radiology study results, current and the previous medication list, current and the previous medical events, and today's lab is still pending; however, most recent lab results showed normal CBC with low potassium of 3.5, low BUN and creatinine with low calcium as well as low albumin and low total protein. The most recently done MRI of the brain as well as CAT scan of the abdomen and pelvis, result is seen and discussed with the staff. PHYSICAL EXAMINATION: GENERAL: A 22-year-old female. VITAL SIGNS: Afebrile with pulse of 80, respiratory rate 20-22, blood pressure 108/66. HEENT: Showed pale, dry oral mucous membrane. Mildly nonicteric sclerae. LUNGS: Few scattered crepitation. Decreased air entry at bases. HEART: Positive S1 and S2. ABDOMEN: Soft with slight generalized tenderness. No mass or organomegaly. No rebound tenderness or guarding. Mild abdominal distention noticed. EXTREMITIES: With mild, slight edematous changes. No clubbing or cyanosis. NEUROLOGICAL: No reported new neurological deficits. No new focal deficits. IMPRESSION: 1. Change of bowel movement habit with reported colitis by radiology study results only. 2. Re-exacerbation of peptic ulcer disease. 3. Electrolyte imbalance with hypokalemia. 4. Mentally challenging . SUGGESTIONS: 1. Continue current management. 2. Dulcolax p.o. 3. Case is to be discussed with the ID organizational research consultant on the case and no aggressive GI workup in the meantime; however, if the patient's symptoms persist, then oil retention enema followed by PE and upper GI with small bowel follow-through to be performed, otherwise continue current medication. We will follow up with you. Olga Bartlett MD [facility] # [id number]
--- NOTE | 2018-06-08 13:55 | CP.PCM.PN ---
Subjective - Date & Time of Evaluation Date of Evaluation: 06/08/18 Time of Evaluation: 07:00 - Subjective Subjective: no new cultures Objective - Vital Signs/Intake and Output Vital Signs (last 24 hours): Temp Pulse Resp BP Pulse Ox 98.2 F 91 H 20 96/62 L 99 06/08/18 07:25 06/08/18 07:25 06/08/18 07:25 06/08/18 07:25 06/08/18 07:25 Intake and Output: 06/08/18 06/08/18 06:59 18:59 Intake Total 1300 Balance 1300 - Medications Medications: Current Medications Acetaminophen (Tylenol 325mg Tab) 650 mg PO Q6 PRN PRN Reason: Pain, Mild (1-3) Heparin Sodium (Porcine) (Heparin) 5,000 units SC Q12 [facility] Last Admin: 06/08/18 09:15 Dose: Not Given Levetiracetam 250 mg/ Sodium (Chloride) 102.5 mls @ 420 mls/hr IVPB Q12H [facility] Last Admin: 06/08/18 11:03 Dose: 420 mls/hr Lorazepam (Ativan) 2 mg IVP Q4 PRN PRN Reason: Seizure activity Lorazepam (Ativan) 1 mg IVP ONCE PRN PRN Reason: Agitation Last Admin: 06/06/18 10:08 Dose: 1 mg Ondansetron HCl (Zofran Inj) 4 mg IVP Q6 PRN PRN Reason: Nausea/Vomiting Last Admin: 06/06/18 06:37 Dose: 4 mg Polyethylene Glycol (Miralax) 17 gm PO DAILY [facility] Last Admin: 06/08/18 09:12 Dose: 17 gm Potassium Chloride (Potassium Chloride Oral Soln) 20 meq PO DAILY [facility] Stop: 06/09/18 18:01 Last Admin: 06/08/18 09:12 Dose: 20 meq - Labs Labs: 06/07/18 11:30 06/07/18 11:30 - Constitutional Appears: Non-toxic, Chronically Ill - Head Exam Head Exam: NORMOCEPHALIC - Eye Exam Eye Exam: PERRL - ENT Exam ENT Exam: Mucous Membranes Dry - Neck Exam Neck Exam: absent: Thyromegaly - Respiratory Exam Respiratory Exam: Decreased Breath Sounds - Cardiovascular Exam Cardiovascular Exam: REGULAR RHYTHM - GI/Abdominal Exam GI & Abdominal Exam: Distended - Rectal Exam Rectal Exam: Deferred - Exam Exam: NORMAL INSPECTION Assessment and Plan (1) Seizure Status: Acute
[2018-06-08] MEDS: Dextrose 5%/0.45% NS 1,000 ML IV SCH (14:10)
[2018-06-08 16:52] VITALS: O2SAT 98
--- NOTE | 2018-06-08 22:16 | CARD ---
APPROVED REPORT Date of service: 06/04/2018 EKG Measurement Heart [id number] <Conclusion> Undetermined rhythm first degree heart block Septal infarct, age undetermined Marked ST abnormality, possible inferior subendocardial injury Abnormal ECG
--- NOTE | 2018-06-09 08:42 | CP.PCM.PN ---
Subjective - Date & Time of Evaluation Date of Evaluation: 06/09/18 Time of Evaluation: 07:15 - Subjective Subjective: PGY-[address] Lerma's Service Patient seen and examined at bedside. Per nursing, no acute events occurred overnight. ROS unobtainable due to patient's current clinical condition. Mother reports patient is doing well on Keppra and is improving. -- Patient is stable for discharge per Dr. Lerma. Patient should resume all medications as outlined in this document. Additionally, patient should take the new medications listed below (scripts provided). 1. Please make an appointment and follow up with your Primary Doctor within one week of discharge. 2. Please follow up with your Neurologist (you already made the appointment). The neurologist that saw you in the hospital, Dr. Muhammad, would like you to have an EEG as an outpatient. Patient should return to ED immediately if symptoms return or worsen. Instructions discussed with patient who understood and agreed. Newly prescribed medications: Keppra 250mg PO Q12H #60 Objective - Vital Signs/Intake and Output Vital Signs (last 24 hours): Temp Pulse Resp BP Pulse Ox 98.2 F 74 20 90/53 L 98 06/08/18 16:00 06/08/18 23:40 06/08/18 16:00 06/08/18 16:00 06/08/18 16:00 Intake and Output: 06/09/18 06/09/18 06:59 18:59 Intake Total 1300 Balance 1300 - Medications Medications: Current Medications Acetaminophen (Tylenol 325mg Tab) 650 mg PO Q6 PRN PRN Reason: Pain, Mild (1-3) Levetiracetam 250 mg/ Sodium (Chloride) 102.5 mls @ 420 mls/hr IVPB Q12H [facility] Last Admin: 06/08/18 23:52 Dose: 420 mls/hr Lorazepam (Ativan) 2 mg IVP Q4 PRN PRN Reason: Seizure activity Lorazepam (Ativan) 1 mg IVP ONCE PRN PRN Reason: Agitation Last Admin: 06/06/18 10:08 Dose: 1 mg Ondansetron HCl (Zofran Inj) 4 mg IVP Q6 PRN PRN Reason: Nausea/Vomiting Last Admin: 06/06/18 06:37 Dose: 4 mg Polyethylene Glycol (Miralax) 17 gm PO DAILY [facility] Last Admin: 06/08/18 09:12 Dose: 17 gm Potassium Chloride (Potassium Chloride Oral Soln) 20 meq PO DAILY [facility] Stop: 06/09/18 18:01 Last Admin: 06/08/18 09:12 Dose: 20 meq - Labs Labs: 06/07/18 11:30 06/07/18 11:30 - Additional Findings Additional findings: - Head Exam Head Exam: ATRAUMATIC, NORMAL INSPECTION, NORMOCEPHALIC - Eye Exam Eye Exam: EOMI, Normal appearance, PERRL Pupil Exam: NORMAL ACCOMODATION - ENT Exam ENT Exam: Mucous Membranes Moist, Normal Oropharynx - Respiratory Exam Respiratory Exam: Clear to Ausculation Bilateral, NORMAL BREATHING PATTERN. absent: Prolonged Expiratory Phase, Respiratory Distress - Cardiovascular Exam Cardiovascular Exam: REGULAR RHYTHM, +S1, +S2 - GI/Abdominal Exam GI & Abdominal Exam: Soft, Normal Bowel Sounds. absent: Hyperactive Bowel Sounds - Extremities Exam Extremities Exam: Normal Inspection - Back Exam Back Exam: NORMAL INSPECTION. absent: CVA tenderness (R), paraspinal tenderness - Neurological Exam Neurological Exam: Alert, Awake, CN II-XII Intact - Psychiatric Exam Psychiatric exam: Normal Affect, Normal Mood - Skin Skin Exam: Dry, Intact Assessment and Plan - Assessment and Plan (Free Text) Assessment: Seizure Assessment & Plan: Head CT- negative for acute disease or bleed. MRI taken- negative EEG not taken yet. Will f/u with read. Consult to Neuro (Dr. Muhammad) : Patient started on Keppra 250mg BID : Patient to have seizure precautions : EEG : Continue supportive care and other treatment. Lactic acid likely elevated due to seizure. (Slightly hemolysed as well) Blood cultures: negative x24 hours Urine culture: negative UA contaminated. Will f/u with repeat. Ativan 2 mg IV PRN on board UDS negative Liquid diet Aspiration, fall risk and seizure precautions on board Status: Acute Abdominal pain Assessment & Plan: CT abdomen and pelvis :nonspecific acute infectious/inflammatory colitis in ascedning, transverse and proximal colon :For complete read see EMR ID (Dr. Middleton) recommendations :recc : GI eval , stool enterovirus, OB, C/S GI Dr. Walker consulted. Help appreciated : Supportive care : Check stool culture, hold off C diff for now : Order dulcolax suppository : If persistent symptoms, may consider EGD Lipase negative, bHcg negative Zofran PRN Tylenol PRN for pain Status: Acute Hypokalemia Assessment & Plan: Repleted Continue to monitor with serial CMP's Status: Acute Hypomagnesmia -Repleted -Will continue to monitor with serial CMP'S (4) Prophylactic measure Assessment & Plan: Heparin SC Q 12H No GI prophylaxis indicated at this time Status: Acute Discussed with attending. All planning and management as per Dr. Lerma. -- Patient is stable for discharge per Dr. Lerma. Patient should resume all medications as outlined in this document. Additionally, patient should take the new medications listed below (scripts provided). 1. Please make an appointment and follow up with your Primary Doctor within one week of discharge. 2. Please follow up with your Neurologist (you already made the appointment). The neurologist that saw you in the hospital, Dr. Muhammad, would like you to have an EEG as an outpatient. Patient should return to ED immediately if symptoms return or worsen. Instructions discussed with patient who understood and agreed. Newly prescribed medications: Keppra 250mg PO Q12H #60
--- NOTE | 2018-06-09 08:44 | PN ---
Copied To: Rufina Lerma MD Attending MD: Rufina Lerma MD DATE: 06/08/2018 The patient improving. Appetite is better. Vomiting stopped. Rufina Lerma MD
[2018-06-09] MEDS: POLYETHYLENE GLYCOL 3350 17 GM/Dose PACKET PO SCH (10:27)
[2018-06-09] MEDS: Potassium Chloride 20 mEq/15 ml LIQ UD PO SCH (10:27)
[2018-06-09 11:05] VITALS: BP 99/97; PULSE 96; RESP 18; TEMP 97.9
[2018-06-09 11:05] LABS: BASO % 0.4 % (0.0-2.0); EOS # 0.5 K/uL (0.0-0.7); EOS % 6.5 % (0.0-4.0); HEMOGLOBIN 13.7 g/dL (11.0-16.0); LYMPH # 2.3 K/uL (1.0-4.3); LYMPH % 33.8 % (20.0-40.0); MEAN CELL VOLUME 80.8 fL (81.0-99.0); MEAN CORPUSCULAR HEMOGLOBIN 28.2 pg (27.0-31.0); MEAN CORPUSCULAR HGB CONC 34.9 g/dL (33.0-37.0); MEAN PLATELET VOLUME 10.6 fL (7.2-11.7); MONO # 0.8 K/uL (0.0-0.8); MONO % 11.3 % (0.0-10.0); NEUT # 3.3 K/uL (1.8-7.0); NRBC % 0.1 % (0.0-2.0); RBC 4.85 Mil/uL (3.80-5.20); RED CELL DISTRIBUTION WIDTH 16.3 % (11.5-14.5); WHITE BLOOD COUNT 6.9 K/uL (4.8-10.8)
[2018-06-09 11:35] LABS: ALB/GLOB RATIO 1.5 (1.0-2.1); ALBUMIN 3.4 g/dL (3.5-5.0); ALT/SGPT 37 U/L (9-52); AST/SGOT 28 U/L (14-36); BLOOD UREA NITROGEN < 2 mg/dL (7-17); GFR AFRICAN-AMERICAN > 60; GFR NON-AFRICAN AMERICAN > 60
[2018-06-09] MEDS ORDERED: levETIRAcetam 100 mg/ml (5ml) Oral Syringe PO SCH (12:15)
== END 2018-06-09 14:39 | disposition home or self-care (01) | DRG 813 ==
LOC: C.ER 13:05 → C.9E 15:20 → C.5S 19:09
PROVIDERS: ADMIT Internal Medicine Pulmonary Disease; ATTEND Internal Medicine Pulmonary Disease
DX: A08.4 Viral intestinal infection, unspecified (principal); F84.0 Autistic disorder; E87.6 Hypokalemia; E87.2 Acidosis; R32 Unspecified urinary incontinence; R56.9 Unspecified convulsions; K52.9 Noninfective gastroenteritis and colitis, unspecified

== ENCOUNTER 2018-10-25 14:17 | Emergency (ER) | payer MEDICAID ==
[2018-10-25 14:34] VITALS: TEMP 98
[2018-10-25 16:13] LABS: BASO % 0.6 % (0.0-2.0); EOS # 0.2 K/uL (0.0-0.7); EOS % 2.2 % (0.0-4.0); HEMOGLOBIN 14.1 g/dL (11.0-16.0); LYMPH # 2.1 K/uL (1.0-4.3); LYMPH % 27.7 % (20.0-40.0); MEAN CORPUSCULAR HEMOGLOBIN 28.7 pg (27.0-31.0); MEAN CORPUSCULAR HGB CONC 33.9 g/dL (33.0-37.0); MEAN PLATELET VOLUME 10.1 fL (7.2-11.7); MONO # 0.8 K/uL (0.0-0.8); MONO % 10.2 % (0.0-10.0); NEUT # 4.5 K/uL (1.8-7.0); NEUT % 59.3 % (50.0-75.0); NRBC % 0.1 % (0.0-2.0); RBC 4.91 Mil/uL (3.80-5.20); RED CELL DISTRIBUTION WIDTH 13.4 % (11.5-14.5); WHITE BLOOD COUNT 7.7 K/uL (4.8-10.8)
--- NOTE | 2018-10-25 16:19 | C.PDOC ---
History Of Present Illness 22 year old female is brought to the ED by mother for evaluation of poor appetite and abdominal colic for the past 3 days. Patient was diagnosed with colitis in May 2018. Mother states that patient usually eats very well. Mother denies any diarrheal illness currently. History obtained via mother; patient has history of Autism and is nonverbal. As per mother, patient is not sexually active. Time Seen by Provider: 10/25/18 15:04 Chief Complaint (Nursing): GI Problem History Per: Family (mother) History/Exam Limitations: other (non-verbal ) Current Symptoms Are (Timing): Still Present Additional History Per: Family Past Medical History Reviewed: Historical Data, Nursing Documentation, Vital Signs Vital Signs: Last Vital Signs Temp 98.0 F 10/25/18 14:29 Pulse 88 10/25/18 14:29 Resp 20 10/25/18 14:29 BP 108/73 10/25/18 14:29 Pulse Ox 100 10/25/18 14:29 - Medical History PMH: Seizures Surgical History: No Surg Hx Family History: States: Unknown Family Hx - Social History Hx Alcohol Use: No Hx Substance Use: No Review Of Systems Gastrointestinal: Positive for: Other (abdominal colic, poor appetite ) Physical Exam - Physical Exam Appears: Well, Non-toxic, No Acute Distress Skin: Normal Color, Warm, Dry Head: Atraumatic, Normacephalic Eye(s): bilateral: Normal Inspection Oral Mucosa: Moist Neck: Supple Chest: Symmetrical, No Deformity, No Tenderness Cardiovascular: Rhythm Regular, No Murmur Respiratory: Normal Breath Sounds, No Rales, No Rhonchi, No Wheezing Extremity: Normal ROM, Capillary Refill (less than 2 seconds ) Neurological/Psych: Other (poor eye contact, non-verbal ) ED Course And Treatment - Laboratory Results Result Diagrams: 10/25/18 16:10 10/25/18 16:10 Lab Interpretation: Normal (ua neg.) Urine POC: Negative O2 Sat by Pulse Oximetry: 100 (on RA) Pulse Ox Interpretation: Normal - Radiology CXR: Interpreted by Me CXR Interpretation: Yes: No Acute Disease - Other Rad abd x 2 X-Ray: Interpreted by Me (++ increased gas, no obstr, no rectal impaction) Progress Note: Bloodwork, urinalysis, and obstructive series abdomen ordered and reviewed. Reevaluation Time: 18:40 Reassessment Condition: Improved (eating chips and drinking juice. belly soft) Medical Decision Making Medical Decision Making: increased colonic gas, ? rectal gas Mom defers rectal exam/enema due to pt's Autistic state and will not cooperate Agrees to trial Fleets enema @ home. Disposition Doctor Will See Patient In The: Office Counseled Patient/Family Regarding: Studies Performed, Diagnosis - Disposition Disposition: HOME/ ROUTINE Disposition Time: 18:41 Condition: GOOD Forms: [facility] ([place]riot) - Clinical Impression Clinical Impression: Gas pain - Scribe Statement The provider has reviewed the documentation as recorded by the Scribe (Syl Souza) Provider Attestation: All medical record entries made by the Scribe were at my direction and personally dictated by me. I have reviewed the chart and agree that the record accurately reflects my personal performance of the history, physical exam, medical decision making, and the department course for this patient. I have also personally directed, reviewed, and agree with the discharge instructions and disposition.
[2018-10-25 16:24] LABS: MEAN CELL VOLUME 84.9 fL (81.0-99.0)
[2018-10-25 16:31] LABS: BLOOD UREA NITROGEN 6 mg/dL (7-17); CALCIUM 9.2 mg/dl (8.6-10.4); GFR NON-AFRICAN AMERICAN > 60; LIPASE 25 U/L (23-300)
[2018-10-25 16:35] LABS: ALB/GLOB RATIO 1.7 (1.0-2.1); ALBUMIN 4.6 g/dL (3.5-5.0); ALT/SGPT 12 U/L (9-52); AST/SGOT 25 U/L (14-36)
[2018-10-25 18:11] LABS: HCG,QUALITATIVE URINE NEGATIVE (NEGATIVE)
[2018-10-25 18:12] LABS: SQUAMOUS EPITHIAL 14 /hpf (0-5); URINE AMORPHOUS SEDIMENT MODERATE /ul (<OCC); URINE BACTERIA MOD (<OCC); URINE BILIRUBIN NEGATIVE (NEGATIVE); URINE BLOOD NEGATIVE (NEGATIVE); URINE CLARITY Hazy (Clear); URINE COLOR Yellow (YELLOW); URINE GLUCOSE (UA) NORMAL (Normal); URINE LEUKOCYTE ESTERASE NEG Leu/uL (Negative); URINE PROTEIN NEGATIVE (NEGATIVE); URINE UROBILINOGEN NORMAL mg/dL (0.2-1.0)
[2018-10-25 19:20] VITALS: BP 106/58; PULSE 79; RESP 16; O2SAT 98
--- NOTE | 2018-10-26 11:07 | RAD ---
Date of service: 10/25/2018 PROCEDURE: Radiographs of the chest and abdomen (obstructive series) HISTORY: abd pain COMPARISON: No prior. TECHNIQUE: AP radiograph of the chest, with upright and supine radiographs of the abdomen. FINDINGS: CHEST: Lungs: The lungs are well inflated and clear. Cardiovascular: Normal size heart. No pulmonary vascular congestion. No aortic atherosclerotic calcification present Pleura: No pleural fluid. No pneumothorax. Other findings: None. ABDOMEN AND PELVIS: Bowel: There is large amount of stool in the ascending and transverse colon, and rectum. There is gaseous distension of the stomach. There are gas filled mildly dilated small bowel loops. Free air: None. Bones: Unremarkable. Other findings: None. IMPRESSION: Constipation. Gaseous distension of the stomach and mild gaseous distension of small bowel loops. Findings may be related to ileus or developing obstruction. Follow-up is advised. The final report is tagged to the PA review folder.
== END 2018-10-25 19:20 | disposition home or self-care (01) ==
LOC: C.ER 14:17
DX: R14.1 Gas pain (principal)

== ENCOUNTER 2018-10-31 15:56 | Emergency (ER) | payer MEDICAID ==
[2018-10-31] MEDS ORDERED: Magnesium Citrate Oral SOL (300 ml) PO ONE (16:43)
[2018-10-31] MEDS ORDERED: Magnesium Citrate Oral SOL (300 ml) ONE (16:55)
[2018-10-31 17:40] LABS: SQUAMOUS EPITHIAL 6 /hpf (0-5); URINE BACTERIA RARE (<OCC); URINE BILIRUBIN NEGATIVE (NEGATIVE); URINE BLOOD NEGATIVE (NEGATIVE); URINE CLARITY Hazy (Clear); URINE COLOR Yellow (YELLOW); URINE GLUCOSE (UA) NORMAL (Normal); URINE LEUKOCYTE ESTERASE NEG Leu/uL (Negative); URINE PROTEIN NEGATIVE (NEGATIVE)
--- NOTE | 2018-10-31 17:45 | C.PDOC ---
History Of Present Illness 22 year old female with a history of autism, presents to the ED with reports of losing weight for the last 6 months. Patient's mother reports decreased PO intake. Patient was seen in [facility] last week, and had an abdominal film done that showed distention, constipation, and possible ileus. Patient was recalled today due to radiological reading. As per patient's mother, patient has not moved bowels in entire week, and is only intermittently eating and drinking. Mother denies vomiting, fever, and chills. Patient does not express any concerns at this time, and is non-verbal. Time Seen by Provider: 10/31/18 16:30 Chief Complaint (Nursing): GI Problem History Per: Family (mother) History/Exam Limitations: no limitations Onset/Duration Of Symptoms: Other (6 months) Current Symptoms Are (Timing): Still Present Associated Symptoms: Other (Dec PO intake and weight loss) Last Bowel Movement: Other (1 week ago) Past Medical History Reviewed: Historical Data, Nursing Documentation, Vital Signs Vital Signs: Last Vital Signs Temp 97.7 F 10/31/18 16:22 Pulse 98 H 10/31/18 16:22 Resp 18 10/31/18 16:22 BP 90/64 L 10/31/18 16:22 Pulse Ox 98 10/31/18 16:22 - Medical History PMH: Seizures Other PMH: Autism Surgical History: No Surg Hx Family History: States: No Known Family Hx - Social History Hx Alcohol Use: No Hx Substance Use: No Review Of Systems Except As Marked, All Systems Reviewed And Found Negative. Constitutional: Negative for: Fever, Chills Gastrointestinal: Positive for: Other (decreased PO intake, weight loss, no bowel movements). Negative for: Nausea, Vomiting Physical Exam - Physical Exam Appears: Non-toxic, No Acute Distress, Other (non-verbal) Skin: Warm, Dry Head: Atraumatic, Normacephalic Eye(s): bilateral: Normal Inspection, PERRL, EOMI Nose: Normal Oral Mucosa: Moist Neck: Normal, Supple Chest: Symmetrical, No Tenderness Cardiovascular: Rhythm Regular, No Murmur Respiratory: Normal Breath Sounds, No Rales, No Rhonchi, No Wheezing Gastrointestinal/Abdominal: Soft, No Tenderness, No Guarding, No Rebound, Other (feels full on left side) Extremity: Normal ROM ED Course And Treatment O2 Sat by Pulse Oximetry: 98 (RA) Pulse Ox Interpretation: Normal Medical Decision Making Medical Decision Making: Patient moved large hard stool after enema. Abnormal obstructive series. Will recommend CT abdomen. Disposition - Disposition Disposition Time: 18:41 Condition: IMPROVED Forms: [facility] (Spanish) - Clinical Impression Clinical Impression: Constipation - Scribe Statement The provider has reviewed the documentation as recorded by the Scribe (Bill Quinn) Provider Attestation: All medical record entries made by the Scribe were at my direction and personally dictated by me. I have reviewed the chart and agree that the record accurately reflects my personal performance of the history, physical exam, medical decision making, and the department course for this patient. I have also personally directed, reviewed, and agree with the discharge instructions and disposition. Physician Patient Turnover Patient Signed Over To: Sonia Woodall Handoff Comments: Pending CT abdomen and final dispo.
[2018-10-31] MEDS ORDERED: Iohexol 240 (50 ml) PO ONE (18:38)
[2018-10-31 19:44] LABS: BASO % 0.3 % (0.0-2.0); EOS # 0.1 K/uL (0.0-0.7); EOS % 1.4 % (0.0-4.0); HEMOGLOBIN 14.3 g/dL (11.0-16.0); LYMPH # 2.6 K/uL (1.0-4.3); MEAN CORPUSCULAR HEMOGLOBIN 28.1 pg (27.0-31.0); MEAN CORPUSCULAR HGB CONC 33.5 g/dL (33.0-37.0); MEAN PLATELET VOLUME 9.7 fL (7.2-11.7); MONO # 0.6 K/uL (0.0-0.8); MONO % 8.3 % (0.0-10.0); NEUT # 3.7 K/uL (1.8-7.0); RBC 5.08 Mil/uL (3.80-5.20); RED CELL DISTRIBUTION WIDTH 13.6 % (11.5-14.5); WHITE BLOOD COUNT 6.9 K/uL (4.8-10.8)
--- NOTE | 2018-10-31 19:58 | RAD ---
Date of service: 10/31/2018 PROCEDURE: Radiographs of the chest and abdomen (obstructive series) HISTORY: pain, possible constipation COMPARISON: Obstructive series performed 10/25/18 TECHNIQUE: AP radiograph of the chest, with upright and supine radiographs of the abdomen. FINDINGS: CHEST: Heart size appears within normal limits. Mild left basilar atelectasis or infiltrate. No significant pleural effusion or definite pneumothorax. Please note that chest x-ray has limited sensitivity for the detection of pulmonary masses. ABDOMEN AND PELVIS: Marked gaseous distension as well as air-fluid level within the stomach. Moderate to severe constipation. No definite free air. No acute osseous abnormality is detected. IMPRESSION: Mild left basilar atelectasis or infiltrate. Marked gaseous distension as well as air-fluid level within the stomach; etiology unclear. Correlate clinically for possibility of gastric outlet obstruction. Moderate to severe constipation.
[2018-10-31 20:10] LABS: ALB/GLOB RATIO 1.6 (1.0-2.1); ALBUMIN 4.6 g/dL (3.5-5.0); ALT/SGPT 19 U/L (9-52); AST/SGOT 25 U/L (14-36); BLOOD UREA NITROGEN 9 mg/dL (7-17); CALCIUM 9.1 mg/dl (8.6-10.4); GFR NON-AFRICAN AMERICAN > 60
[2018-10-31] MEDS ORDERED: Iohexol 240 (50 ml) ONE (20:40)
[2018-10-31 22:22] VITALS: BP 94/74; PULSE 74; RESP 16; TEMP 97.5; O2SAT 97
--- NOTE | 2018-11-01 14:51 | CT ---
Date of service: 10/31/2018 PROCEDURE: CT Abdomen and Pelvis with contrast HISTORY: abnormal obstructive serries COMPARISON: CT 06/04/2018 TECHNIQUE: Contrast dose: 100 cc of Visipaque Radiation dose: Total exam DLP = 1679.26 mGy-cm. This CT exam was performed using one or more of the following dose reduction techniques: Automated exposure control, adjustment of the mA and/or kV according to patient size, and/or use of iterative reconstruction technique. FINDINGS: LOWER THORAX: Unremarkable. LIVER: Unremarkable. No gross lesion or ductal dilatation. GALLBLADDER AND BILE DUCTS: Unremarkable. PANCREAS: Unremarkable. No gross lesion or ductal dilatation. SPLEEN: Unremarkable. ADRENALS: Unremarkable. No mass. KIDNEYS AND URETERS: Unremarkable. No hydronephrosis. No solid mass. VASCULATURE: Unremarkable. No aortic aneurysm. No aortic atherosclerotic calcification or mural plaque present. BOWEL: Unremarkable. No obstruction. No gross mural thickening. The stomach is moderately distended. Multiple fluid-filled loops of small bowel and large bowel are seen. There is no evidence of colitis. Moderate constipation APPENDIX: Normal appendix. PERITONEUM: Unremarkable. No free fluid. No free air. LYMPH NODES: Unremarkable. No enlarged lymph nodes. BLADDER: Unremarkable. REPRODUCTIVE: Unremarkable. BONES: No acute fracture. OTHER FINDINGS: The report concurs with the preliminary [facility] report IMPRESSION: The stomach is moderately distended. Multiple fluid-filled loops of small bowel and large bowel are seen. There is no evidence of colitis. Moderate constipation
== END 2018-10-31 23:37 | disposition home or self-care (01) ==
LOC: C.ER 15:56
DX: K59.00 Constipation, unspecified (principal)